=== PATIENT | male | born 1995 | race Caucasian/White ===

== ENCOUNTER 2017-07-27 07:56 | Observation (INO) | payer MEDICARE, MEDICAID ==
[~2017-07-27] VITALS: Ht 177.8 cm; Wt 104.1 kg
[~2017-07-27 07:56] MED LIST: BENZ0.5T PO; CLON0.1T PO; DEPA500T3 PO; GEMF600T PO; LIDOCAINE 1%/EPINEPHrine 1:100,000 SOLN 20 ML VIAL ONE; OMEP20TA93 PO; OXYMETAZOLINE HCL 0.05% 15 ML NASAL SPRAY ONE; RISP3 PO
[2017-07-27] MEDS ORDERED: METOPROLOL TARTRATE 25 MG TAB PO PRN (08:45)
[2017-07-27] MEDS ORDERED: POVIDONE IODINE 5% (ANTISEPSIS KIT) 4 APPLICATIONS EACH NARE PRN (08:45)
[2017-07-27] MEDS ORDERED: CHLORHEXIDINE GLUCONATE 2 % 1 PACK (2 CLOTHS) TOPICAL PRN (08:45)
[2017-07-27] MEDS ORDERED: INSULIN HUMAN REGULAR 1,000 UNITS/10 ML VIAL SQ PRN (08:45)
[2017-07-27] MEDS ORDERED: LACTATED RINGER'S 1000 ML IV PRN (08:45)
[2017-07-27] MEDS ORDERED: SODIUM CHLORID 0.9% 500 ML IV PRN (08:45)
[2017-07-27] MEDS ORDERED: AMPICILLIN/SULBAC 3 GM/NS 100 ML IV SCH ×2 (08:45)
[2017-07-27] MEDS ORDERED: MELA5 PO (09:21)
[2017-07-27] MEDS ORDERED: POTA-163 PO (09:21)
[2017-07-27] MEDS ORDERED: CLAR10CA3 PO (09:21)
[2017-07-27] MEDS ORDERED: FLUT1INH INH (09:21)
[2017-07-27] MEDS ORDERED: MIDAZOLAM HCL 2 MG/2 ML VIAL ONE (10:45)
[2017-07-27] MEDS ORDERED: FAMOTIDINE 20 MG/2 ML VIAL ONE (10:45)
[2017-07-27] MEDS ORDERED: MORPHINE SULFATE 2 MG/ML INJ ONE (13:21)
[2017-07-27 14:00] VITALS: O2SAT 99
[2017-07-27] MEDS ORDERED: HYDROmorphone HCL PF 0.5 MG/0.5 ML SYRINGE ONE (14:00)
[2017-07-27] MEDS ORDERED: ONDANSETRON HCL 4 MG/2 ML VIAL IV PUSH PRN (15:00)
[2017-07-27] MEDS: LACTATED RINGER'S 1000 ML INJ 1,000 ML IV SCH ×2 (16:14→20:45)
[2017-07-27] MEDS: AMPICILLIN/SULBAC 3 GM/NS 100 ML IV SCH ×2 (16:14)
[2017-07-27] MEDS: ACETAMINOPHEN/HYDROcodone 325 MG/5 MG TAB PO PRN ×2 (16:15→20:45)
[2017-07-27 16:52] VITALS: BP 165/105; PULSE 98; RESP 18; TEMP 96.8; O2SAT 90
[2017-07-27 20:00] VITALS: BP 166/90; PULSE 105; RESP 20; TEMP 97; O2SAT 94
[2017-07-27 20:35] VITALS: O2SAT 97
[2017-07-28] VITALS: BP 155/113; PULSE 112; RESP 20; TEMP 97.2; O2SAT 99
[2017-07-28] MEDS: AMPICILLIN/SULBAC 3 GM/NS 100 ML IV SCH ×4 (00:59→09:19)
[2017-07-28] MEDS: ACETAMINOPHEN/HYDROcodone 325 MG/5 MG TAB PO PRN ×3 (00:59→09:18)
[2017-07-28 04:00] VITALS: BP 140/92; PULSE 99; RESP 20; TEMP 100.3; O2SAT 93
[2017-07-28 08:42] VITALS: BP 144/85; PULSE 100; RESP 18; TEMP 98.3; O2SAT 93
[2017-07-28 10:18] VITALS: RESP 18
--- NOTE | 2017-08-12 06:47 | MP ---
cc: JENNIFFER WEBSTER M.D. DATE OF SURGERY 07/27/2017 SURGEON Jenniffer webster MD PREOPERATIVE DIAGNOSIS 1. Nasal airway obstruction 2. Nasal septal deviation 3. Hypertrophy inferior turbinates 4. Obstructive sleep apnea POSTOPERATIVE DIAGNOSIS 1. Nasal airway obstruction 2. Nasal septal deviation 3. Hypertrophy inferior turbinates 4. Obstructive sleep apnea OPERATION PERFORMED 1. Open repair nasal septal fracture. 2. Bilateral submucosal resection of inferior turbinates INDICATIONS The indications are documented in the history and physical. DESCRIPTION OF OPERATION The patient was taken to OR #2 and placed in the supine position. Following induction of general anesthesia and intubation, the nose was packed bilaterally with cotton pledgets saturated in 0.05% Oxymetazoline. The nasal septum, mucosa and inferior turbinates were injected with a total of 10 mL of 1% Xylocaine with epinephrine 1:100,000. He was then prepped and draped for surgery. The nasal packing was removed and a hemitransfixion incision was made in the left nasal vestibule. Through this incision, the mucosa of the septum was elevated bilaterally as far as the junction of the bony and cartilaginous septum. This exposed the quadrangular cartilage which showed evidence of long healed comminuted septal fracture with numerous points and spurs obstructing the nasal airways bilaterally. A cumulative area of 2 x 2.5 cm was removed preserving 1.5 cm dorsal and caudal cartilaginous struts. The bony septum was then exposed by elevation of the mucosa and the bony septum was then removed with Abran Woodall forceps and a Rafael Kirkland septal forceps. The maxillary crest was removed using a 6-mm [place] chisel. The anterior nasal spine was preserved during this process. The incision was then closed with a running suture of 4-0 chromic and the mucosal layers of septum were approximated to each of them other with a quilting stitch of 4-0 plain gut. The inferior turbinates were then fractured out medially and stab incisions were made along their inferior surfaces. Through these incisions, the submucosal soft tissue was reduced using a curette and preserving the conchal bone. The incisions were then cauterized using the suction Bovie at 35 cotton. The remnants of the inferior turbinates were then relateralized to the lateral nasal wall. The nose was then packed bilaterally with 5.5 cm rapid rhino inflatable nasal packs. Each side was then filled with 5 mL of air and the procedure was terminated. The patient was reversed from anesthesia and taken to recovery in good condition. There were no complications. Blood loss was 80 mL. MD ANGELICA Valdez/LAN /1:30 PM /6:35 AM
== END 2017-07-28 10:54 | disposition home or self-care (01) ==
LOC: PHSDC 07:56 → PH3B 14:41
PROVIDERS: ADMIT Otolaryngology; ATTEND Otolaryngology
DX: J34.2 Deviated nasal septum (principal); J34.3 Hypertrophy of nasal turbinates; G47.33 Obstructive sleep apnea (adult) (pediatric)
CPT/HCPCS: 00160; 21335; 30140; 94762; 96361; 96365; 99285; G0378; J0295; J1170; J2250; J2270; J2405; J7120

== ENCOUNTER 2017-09-04 18:59 | Emergency (ER) | payer MEDICARE, MEDICAID ==
[~2017-09-04] VITALS: Ht 177.8 cm; Wt 105.0 kg
[~2017-09-04 18:59] MED LIST changes: +CLAR10CA3 PO; -CLON0.1T PO; +FLUT1INH INH; -LIDOCAINE 1%/EPINEPHrine 1:100,000 SOLN 20 ML VIAL ONE; +MELA5 PO; -OXYMETAZOLINE HCL 0.05% 15 ML NASAL SPRAY ONE; +POTA-163 PO
[2017-09-04 19:01] VITALS: BP 163/96; PULSE 100; RESP 14; TEMP 98.2; O2SAT 96
--- NOTE | 2017-09-04 19:59 | PD ---
HPI Chief Complaint: Cold / Flu Symptoms Time Seen by Provider: 19:50 Travel History International Travel<30 days: No Contact w/Intl Traveler<30days: No Traveled to known affect area: No History of Present Illness HPI 21-year-old male presents to emergency department for evaluation of cough and runny nose for the last 2 days. Nasal drainage is clear. Denies any fever or chills. Denies any nausea or vomiting. Patient does report dorsal aspect of his left foot painful for 2 days. She does not recall injuring it. Pain is an aching, 6 out of 10 pain. Exacerbated with ambulation. He has no other symptoms to report. PFSH Past Medical History Hx Anticoagulant Therapy: No ADHD: Yes Bipolar Disorder: Yes Anxiety: Yes Cancer: No Cardiovascular Problems: Yes (HIGH CHOLESTEROL) High Cholesterol: Yes Chemotherapy: No Cerebrovascular Accident: No Diabetes: No Diminished Hearing: No Endocrine: No Gastrointestinal Disorders: Yes (GERD) Genitourinary: No Hepatitis: No Hiatal Hernia: No Immune Disorder: No Musculoskeletal: No Neurologic: No Psychiatric: No Reproductive: No Respiratory: Yes (ASTHMA) Immunizations Current: No Schizophrenia: Yes Thyroid Disease: No Past Surgical History AICD: No Hysterectomy: No Joint Replacement: No Pacemaker: No Other Surgery: Yes (NASAL SX) Social History Alcohol Use: No Tobacco Use: No Substance Use: No Allergies-Medications (Allergen,Severity, Reaction): Coded Allergies: amphetamine (Unverified Allergy, Severe, 07/27/17) dextroamphetamine (Verified Allergy, Severe, EITHER DISORIENTED OR VIOLENT , 07/27/17) ziprasidone (Verified Allergy, Severe, EITHER DISORIENTED OR VIOLENT, ) Reported Meds & Prescriptions Reported Meds & Active Scripts Active Reported Melatonin 5 Mg Tab 3 Mg PO HS Claritin (Loratadine) 10 Mg Cap 10 Mg PO DAILY Breo Ellipta Inh (Fluticasone/Vilanterol) 100-25 Mcg/Act Inh 1 Puff INH DAILY Use daily at the same time. Potassium Chloride ER (Potassium Chloride) 20 Meq Tab 20 Meq PO DAILY Risperdal (Risperidone) 3 Mg Tab 3 Mg PO DAILY Omeprazole 20 Mg Tab 20 Mg PO DAILY Gemfibrozil 600 Mg Tab 600 Mg PO BID Take 30 minutes prior to breakfast and dinner. Depakote ER (Divalproex Sodium) 500 Mg Cherie 500 Mg PO DAILY Benztropine (Benztropine Mesylate) 0.5 Mg Tab 1 Mg PO BID Review of Systems Except as stated in HPI: all other systems reviewed are Neg Physical Exam Narrative GENERAL: Well-nourished, well-developed male patient in no acute distress. SKIN: Focused skin assessment warm/dry. HEAD: Normocephalic. Atraumatic EYES: No scleral icterus. No injection or drainage. ENT: Mucosa pink and moist. No erythema or exudates. No uvular edema. No uvular , palatal, or tonsillar deviation. Airway patent. Nasal turbinates appear normal without nasal blood, purulent drainage or septal hematoma. NECK: Supple, trachea midline. No JVD or lymphadenopathy. CARDIOVASCULAR: Regular rate and rhythm without murmurs, gallops, or rubs. RESPIRATORY: Breath sounds equal bilaterally. No accessory muscle use. GASTROINTESTINAL: Abdomen soft, non-tender, nondistended. MUSCULOSKELETAL: No cyanosis, or edema. Tenderness elicited palpation of the dorsal left foot. No deformity. No crepitus. Cap refill within normal limits. BACK: Nontender without obvious deformity. No CVA tenderness. Data Data Last Documented VS Vital Signs Date Time Temp Pulse Resp B/P (MAP) Pulse Ox O2 Delivery O2 Flow Rate FiO2 09/04/17 21:23 (118) 09/04/17 19:01 98.2 100 14 96 Orders Orders Foot, Complete (Pxe0ure) (09/04/17 ) Danilo Bandage (09/04/17 21:15) Ed Discharge Order (09/04/17 21:16) MDM Medical Decision Making Medical Screen Exam Complete: Yes Emergency Medical Condition: Yes Medical Record Reviewed: Yes Differential Diagnosis Common cold versus pneumonia versus influenza Tendinitis versus contusion versus sprain versus fracture Narrative Course 21-year-old male presents to emergency department for evaluation. Patient's presenting symptoms are consistent with a common cold. He does have tenderness elicited palpation over the left dorsal foot, pain with ambulation. X-ray is ordered and negative for acute bony abnormality. Danilo wrap is applied and patient is counseled on care. He is encouraged follow-up with transfer car operator drier and primary care provider. He agrees to return immediately with any acute worsening of symptoms. Diagnosis Primary Impression: Common cold Additional Impression: Left foot pain Referrals: Primary Care Physician Patient Instructions: Cold Symptoms (ED), General Instructions Additional Instructions: Humidified air may help to alleviate symptoms Follow-up with your primary care provider Tylenol or ibuprofen as truck on the package as needed for fever and/or pain [id number] antitussive for cough Return immediately to the emergency department with any acute worsening of symptoms Med/Other Pt SpecificInfo: Prescription(s) given Disposition: 01 DISCHARGE HOME Condition: Stable Dolores Arvizu Sep 04, 2017 19:59
--- NOTE | 2017-09-04 21:02 | RADRPT ---
EXAM DATE/TIME: 09/04/2017 20:23 [facility] COMPARISON: No previous studies available for comparison. INDICATIONS : Pain and swelling to left foot. Patient states pain is in mid foot near metatarsals. No known injury. MEDICAL HISTORY : None. SURGICAL HISTORY : None. ENCOUNTER: Initial ACUITY: 1 day PAIN SCORE: 5/10 LOCATION: chest FINDINGS: Three view examination of the left foot demonstrates no soft tissue swelling, dislocation, or fractur e. The tarsal bones appear intact. The interphalangeal and metatarsophalangeal joints are intact. The calcaneus is intact. Bony mineralization is normal. CONCLUSION: No acute bony abnormality or significant arthropathy. Nico Casas MD on September 04, 2017 at 20:59 Board Certified Radiologist. This report was verified electronically.
== END 2017-09-04 21:45 | disposition home or self-care (01) ==
LOC: NEPD 18:59
DX: J00 Acute nasopharyngitis [common cold] (principal); M79.672 Pain in left foot; F90.9 Attention-deficit hyperactivity disorder, unspecified type; F31.9 Bipolar disorder, unspecified; F41.9 Anxiety disorder, unspecified; E78.00 Pure hypercholesterolemia, unspecified; K21.9 Gastro-esophageal reflux disease without esophagitis; J45.909 Unspecified asthma, uncomplicated; F20.9 Schizophrenia, unspecified
CPT/HCPCS: 73630; 99283